=== PATIENT | male | born 1955 | race Caucasian/White ===

== ENCOUNTER → 2016-05-28 | Outpatient (CLI) | payer BC ==
[~2016-05-28] MED LIST: MELO-198 PO
[2016-05-28 17:43] LABS: TOTAL PROTEIN,BODY FLUID 3.8 G/DL
== END ==
LOC: LABNPT 15:00
PROVIDERS: ATTEND Orthopaedic Surgery
DX: M25.461 Effusion, right knee (principal); M17.11 Unilateral primary osteoarthritis, right knee
CPT/HCPCS: 84157; 87070; 87205; 89051; 89060